=== PATIENT | female | born 1975 | race Caucasian/White ===

== ENCOUNTER 2017-04-13 12:37 | Emergency (ER) | payer BC ==
[~2017-04-13] VITALS: Ht 170.2 cm; Wt 74.8 kg
[2017-04-13 13:56] LABS: BASOPHIL COUNT 0.1 K/uL (0-0.1); EOSINOPHIL (%) 2.3 % (0-5); EOSINOPHIL COUNT 0.2 K/uL (0-0.3); HEMOGLOBIN 13.2 G/DL (11.9-15.5); IMMATURE GRANULOCYTE (%) 0.3 % (0.0-0.7); LYMPHOCYTE (%) 37.3 % (15-42); LYMPHOCYTE COUNT 2.6 K/uL (1.0-2.8); MCH 30.6 PG (29.0-34.0); MCHC 33.8 G/DL (30.0-36.0); MCV 90.5 FL (83-99); MONOCYTE (%) 8.1 % (3-12); MONOCYTE COUNT 0.6 K/uL (0-0.8); NEUTROPHIL COUNT 3.6 K/uL (1.8-6.4); PLATELET COUNT 348 K/uL (156-360); RBC DIS.WIDTH-CV 12.5 % (11.8-14.6); RBC DIS.WIDTH-SD 41.3 % (39-53); RED BLOOD COUNT 4.31 M/uL (3.80-5.20)
[2017-04-13 14:05] LABS: ALBUMIN 4.3 g/dL (3.2-4.8); CHLORIDE 108 mEq/L (99-109); POTASSIUM 4.1 mEq/L (3.7-5.4); SODIUM 141 mEq/L (136-147)
[2017-04-13 14:07] LABS: GLUCOSE 85 mg/dL (70-99)
[2017-04-13 14:08] LABS: TOTAL PROTEIN 7.2 g/dL (6.4-8.3)
[2017-04-13 14:09] LABS: APPEARANCE CLEAR ((CLEAR)); BILIRUBIN NEGATIVE; BLOOD NEGATIVE; COLOR YELLOW ((YELLOW)); GLUCOSE (STRIP) NEGATIVE; KETONES NEGATIVE; LEUKOCYTES NEGATIVE; NITRITE NEGATIVE; PROTEIN (STRIP) NEGATIVE; SPECIFIC GRAVITY 1.008 (1.000-1.030); UCUL ADDED? NO; UROBILINOGEN 0.2 MG/DL (0.2-1.0)
[2017-04-13 14:09] LABS: TOTAL BILIRUBIN 1.2 mg/dL (0.0-1.0)
[2017-04-13 14:11] LABS: ALKALINE PHOSPHATASE 66 IU/L (3-129); CREATININE 0.7 mg/dL (0.6-1.3); GFR ESTIMATE (CALCULATED) > 59 mL/min/
[2017-04-13 14:12] LABS: UREA NITROGEN (BUN) 9 mg/dL (9-23)
[2017-04-13 14:13] LABS: AST (GOT) 25 IU/L (2-34); DIRECT BILIRUBIN 0.3 mg/dL (0.0-0.3)
[2017-04-13 14:14] LABS: ALT (GPT) 17 IU/L (3-49); LIPASE 45 U/L (1.0-51.0)
[2017-04-13] MEDS ORDERED: ZOFRAN ODT8 MG PO (16:31)
[2017-04-13] MEDS ORDERED: BENTYL20 MG PO (16:31)
[2017-04-13 16:46] VITALS: BP 146/78
== END 2017-04-13 16:47 | disposition home or self-care (01) ==
LOC: EME 12:37 → RME 12:37
PROVIDERS: Physician Assistant
DX: R10.31 Right lower quadrant pain (principal); M54.9 Dorsalgia, unspecified; R11.0 Nausea; Z90.711 Acquired absence of uterus with remaining cervical stump; Z86.010 Personal history of colon polyps; Z87.891 Personal history of nicotine dependence; Z88.8 Allergy status to other drugs, medicaments and biological substances
CPT/HCPCS: 74176; 80048; 80076; 81003; 83605; 83690; 85025; 99281; 99284; J1885